=== PATIENT | female | born 1975 | race Caucasian/White ===

== ENCOUNTER → 2017-03-03 | Outpatient (CLI) | payer OTHER | LOC: FIMAGING 12:11 | PROVIDERS: ATTEND Obstetrics & Gynecology | DX: O09.512 Supervision of elderly primigravida, second trimester (principal); O09.812 Supervision of pregnancy resulting from assisted reproductive technology, second trimester; O99.282 Endocrine, nutritional and metabolic diseases complicating pregnancy, second trimester; O44.02 Complete placenta previa NOS or without hemorrhage, second trimester; Z3A.20 20 weeks gestation of pregnancy ==

== ENCOUNTER → 2017-04-22 | Outpatient (CLI) | payer OTHER | LOC: FIMAGING 08:47 | PROVIDERS: ATTEND Advanced Practice Midwife | DX: O09.512 Supervision of elderly primigravida, second trimester (principal); O09.812 Supervision of pregnancy resulting from assisted reproductive technology, second trimester; O44.02 Complete placenta previa NOS or without hemorrhage, second trimester; Z3A.37 37 weeks gestation of pregnancy ==

== ENCOUNTER → 2017-05-29 | Outpatient (CLI) | payer OTHER | LOC: FIMAGING 09:22 | PROVIDERS: ATTEND Obstetrics & Gynecology | DX: Z36.89 Encounter for other specified antenatal screening (principal); O09.523 Supervision of elderly multigravida, third trimester; Z3A.32 32 weeks gestation of pregnancy; O09.813 Supervision of pregnancy resulting from assisted reproductive technology, third trimester; O44.03 Complete placenta previa NOS or without hemorrhage, third trimester ==

== ENCOUNTER 2017-06-30 10:32 | Inpatient (IN) | payer OTHER ==
--- NOTE | 2017-06-25 22:51 | GHP ---
[f rep st] PREOP HISTORY AND PHYSICAL DATE OF ADMISSION: 06/30/2017 HISTORY UPON PRESENTATION: The patient is a 42-year-old, G1, P0, with an estimated due date of 07/19/2017, who presents for scheduled primary section for complete previa. The patient's has been complicated by a diagnosis of a complete previa at 20 weeks gestation. The patient has not had bleeding episodes during the and good movement. The patient has been advised by consultations with Maternal Medicine to proceed with delivery between 37 and 38 weeks. The patient is to present on June 30 for primary . The patient was counseled as to the risks and benefits on June 24. The consent forms were signed. The patient is advanced maternal age, and conceived with IVF. The patient has had twice weekly monitoring to ensure well-being. The patient also had an echo on the heart that was normal. The patient has had serial ultrasounds by maternal specialist to monitor growth of the fetus. Estimated weights have varied between 71st percentile and 82nd percentile. This was reassuring with the previa and the risk for growth. The previa has been hard for the patient as she desired very natural plan and even intended to transfer to a home . This was obviously revised when the patient learned of this complication. The patient had an elevated 1-hour Glucola that was followed up with a 3-hour GTT, and this was also abnormal. The patient has been followed with an clinical product specialist due to gestational diabetes. The patient had quite a bit of trouble getting that under control. The patient tried metformin but was unable to take long due to GI side affects. More recently, the patient has felt better blood sugar control being in the appropriate range majority of the time. PAST OBSTETRIC LABORATORIES: Maternal blood type B negative with negative antibody screen. RPR nonreactive. Rubella immune. Hepatitis B surface antigen negative. HIV negative. Cystic fibrosis, spinal muscular atrophy, fragile X were all negative with workup through her IVF specialist. TSH has been checked serially and has been within the normal range. Varicella is immune. Urinalysis showed positive blood in December 2016, but the culture was negative. Pap smear normal. Genetic testing on the embryo through IVF was felt to be normal chromosomes. MSAFP was negative. Rh testing was done again at 28 weeks, and RhoGAM was given on April 28. PAST MEDICAL HISTORY: Abnormal Pap smear of EARLENE-1 in 2011 and treated with cryotherapy. Unexplained infertility evaluated by [facility]. In September of 2016 , a myomectomy and a polypectomy were performed. Blank thyroid disorder diagnosed at the age of 20. PAST SURGICAL HISTORY: myomectomy and polypectomy, 2016 ALLERGIES: No known drug allergies. Several reactions to dietary and seasonal. CURRENT MEDICATIONS: [place] Thyroid 105 mg daily. vitamins daily. SOCIAL HISTORY: The patient is , lives with her . The patient is a nonsmoker. No alcohol or drug use. REVIEW OF SYSTEMS: Including 10-point system, the patient has pertinent positives and negatives as noted above. PHYSICAL EXAMINATION: GENERAL: At the time of preop, patient is a well- developed, well-nourished white female, in no physical discomfort. VITAL SIGNS: Patient is clinically afebrile. Blood pressure 100/58, weight 171 pounds. LUNGS : Clear to auscultation bilaterally. CARDIOVASCULAR: Regular rate and rhythm. ABDOMEN: Shows a gravid uterus at 38 cm. Normal heart tones in the 150s. PELVIC: Deferred. EXTREMITIES: Nontender and no edema. LABORATORY DATA: Urinalysis negative for protein and glucose. ASSESSMENT: Intrauterine at 37+ weeks gestation with complete previa. Also gestational diabetes in moderate control. Blank hypothyroidism in control on natural thyroid replacement. Advanced maternal age with history of in vitro fertilization with negative echo. PLAN: The patient will present on June 30 for midday surgery for a primary section. The patient wishes to have the 1 minute delayed cord clamping if the baby is doing well. After this, the patient would like to get CBR cord collection for storage. The patient reports that she gets hives with soaps and has sensitive skin and will try to do mild soap for the abdominal prep. Patient also reports she had a mild intolerance to a narcotic after the myomectomy, and she will try to check into what she was prescribed. /[id number]/MODL and [id number]/MODL MTDD
[2017-06-30] MEDS ORDERED: OXYTOCIN 20 UNIT in LR 1,000 ML IV PRN (11:18)
[2017-06-30] MEDS ORDERED: TERBUTALINE SULFATE 1 MG/ML VIAL IV PRN (11:18)
[2017-06-30] MEDS ORDERED: EPSOM SALT 454 GM TP PRN (11:18)
[2017-06-30] MEDS ORDERED: OLIVE OIL 118 ML BTL MISC PRN (11:18)
[2017-06-30] MEDS: LR 1,000 ML IV PRN ×2 (11:29→22:00)
[2017-06-30 11:32] LABS: % IMMATURE GRANULYOCYTES 0.6 % (0.0-1.1); ABSOLUTE IMMATURE GRANULOCYTES 0.05 10^3/uL (0.00-0.10); ADD DIFF? NO; ADD MORPH? NO; ADD SCAN? NO; ATYPICAL LYMPHOCYTE FLAG 0 (0-99); FRAGMENT RBC FLAG 0 (0-99); HEMOGLOBIN 13.7 g/dL (12.6-16.3); LEFT SHIFT FLG 0 (0-99); LIPEMIA HEMOLYSIS FLAG 90 (0-99); MEAN CELL HEMOGLOBIN 32.5 pg (27.9-34.1); MEAN CELL HEMOGLOBIN CONCENTR. 36.1 g/dL (32.4-36.7); MEAN PLATELET VOLUME 10.7 fL (8.7-11.7); PLATELET CLUMPS FLAG 0 (0-99); PLATELET COUNT 143 10^3/uL (150-400); RED BLOOD CELL COUNT 4.22 10^6/uL (4.18-5.33); RED CELL DISTRIBUTION WIDTH 13.4 % (11.5-15.2)
[2017-06-30] MEDS ORDERED: ceFAZolin 2 GM in NS 100 ML IV ONE (12:09)
[2017-06-30] MEDS ORDERED: KETOROLAC 30 MG/1 ML SDV ONE (12:24)
[2017-06-30] MEDS ORDERED: OLIVE OIL 118 ML BTL ONE (12:24)
[2017-06-30] MEDS ORDERED: OXYTOCIN 100 UNITS/10 ML VIAL ONE (12:24)
[2017-06-30] MEDS ORDERED: LIDOCAINE 1% 300 MG/30 ML SDV ONE (12:24)
[2017-06-30] MEDS ORDERED: AMMONIA AROMATIC 1 EACH AMP IH ONE (12:24)
[2017-06-30] MEDS ORDERED: ONDANSETRON 4 MG/2 ML VIAL ONE (12:24)
[2017-06-30] MEDS ORDERED: DEXAMETHASONE 4 MG/ML VIAL ONE (12:24)
[2017-06-30] MEDS ORDERED: TERBUTALINE SULFATE 1 MG/ML VIAL ONE (12:24)
[2017-06-30] MEDS ORDERED: OXYTOCIN 10 UNIT/ML VIAL ONE (12:25)
[2017-06-30] MEDS ORDERED: BUPIVACAINE/DEXTROSE 7.5MG/ML 2 ML SPINAL AMP SP ONE (12:25)
[2017-06-30] MEDS ORDERED: MISOPROSTOL 200 MCG TAB ONE (12:25)
[2017-06-30] MEDS ORDERED: METOCLOPRAMIDE 10 MG/2 ML VIAL IVP ONE (12:27)
[2017-06-30] MEDS ORDERED: CITRIC ACID/SODIUM CITRATE 30 ML UDCUP PO ONE (12:27)
[2017-06-30] MEDS ORDERED: FAMOTIDINE 20 MG/NACL 50 ML IV ONE (12:27)
--- NOTE | 2017-06-30 12:28 | PDANEPAE ---
ANE History of Present Illness c/s ANE Past Medical History - Cardiovascular History Hx Hypertension: No - Pulmonary History Hx COPD: No Hx Sleep Apnea: No Sleep Apnea Screening Result - Last Documented: Negative - Neurologic History Hx Cerebrovascular Accident: No - Endocrine History Hypothyroid: Yes - Renal History Hx Renal Disorders: No - Liver History Hx Hepatic Disorders: No ANE Review of Systems Review of Systems: - Exercise capacity METS (RN): 4 METS ANE Patient History - Allergies Allergies/Adverse Reactions: No Allergies [NKDA] Allergy (Verified 06/24/17 21:59) - Home Medications Home Medications: [place] Thyroid 105 mcg 06/30/17 [Last Taken 06/30/17 06:15] - NPO status NPO Since - Liquids (Date): 06/30/17 NPO Since - Liquids (Time): 06:15 NPO Since - Solids (Date): 06/30/17 NPO Since - Solids (Time): 04:15 - Anes Hx Anes Hx: no prior problems - Smoking Hx Smoking Status: Never smoked ANE Labs/Vital Signs - Labs Result Diagrams: 06/30/17 11:15 - Vital Signs Blood Pressure: 107/59 Respiratory Rate: 14 Height: 157.48 cm Weight: 75.75 kg ANE Physical Exam - Airway Mallampati Score: Class 2 Mouth exam: normal dental/mouth exam - Pulmonary Pulmonary: no respiratory distress - Cardiovascular Cardiovascular: regular rate and rhythym - ASA Status ASA Status: II ANE Anesthesia Plan Anesthesia Plan: spinal
[2017-06-30] MEDS ORDERED: ceFAZolin 2 GM/SWFI 2 GM/20 ML SYR IVP ONE ×2 (12:30)
[2017-06-30] MEDS ORDERED: ceFAZolin 2 GM/DEXTROSE 100 ML IV ONE (12:30)
[2017-06-30] MEDS ORDERED: morphINE PF 5 MG/10 ML INJ ONE (12:31)
[2017-06-30] MEDS ORDERED: PHENYLEPHRINE HCL 100 MCG/ML SYR ONE (12:32)
--- NOTE | 2017-06-30 12:33 | PDHPUP ---
History & Physical Update H&P update statement: This history and physical update is based on an assessment of the patient which was completed after admission or registration (within 24 hours), but prior to the surgery/procedure.
[2017-06-30] MEDS ORDERED: HYDROmorphONE/DILAUDID 1 MG/ML INJ IVP PRN (13:18)
[2017-06-30] MEDS ORDERED: MEPERIDINE 25 MG/ML SYR IVP PRN (13:18)
[2017-06-30] MEDS ORDERED: NALOXONE HCL 0.4 MG/ML INJ IVP PRN (13:18)
[2017-06-30] MEDS ORDERED: fentaNYL 100 MCG/2 ML INJ IVP PRN (13:18)
[2017-06-30] MEDS ORDERED: PHENYLEPHRINE HCL 100 MCG/ML SYR IVP PRN (13:18)
[2017-06-30] MEDS ORDERED: ONDANSETRON 4 MG/2 ML VIAL IVP PRN (13:18)
[2017-06-30] MEDS ORDERED: MIDAZOLAM 2 MG/2 ML VIAL ONE (13:33)
[2017-06-30] MEDS ORDERED: fentaNYL 100 MCG/2 ML INJ ONE (13:34)
[2017-06-30] MEDS ORDERED: PHENYLEPHRINE 10 MG/ML SDV ONE (13:56)
[2017-06-30] MEDS ORDERED: METHYLERGONOVINE MAL 0.2 MG/ML INJ ONE (13:56)
--- NOTE | 2017-06-30 14:34 | POSTANESTH ---
Post Anesthetic Evaluation Cardiovascular Status: Normal, Stable Respiratory Status: Normal, Stable Level of Consciousness/Mental Status: Can Participate in Eval Pain Control: Adequate, Prn Tx Ordered Nausea/Vomiting Control: Adequate, Prn Tx Ordered Complications Possibly Related to Anesthesia: None Noted
--- NOTE | 2017-06-30 14:48 | OBDEL ---
Info Type: Primary Presentation at Delivery: Vertex L&D Analgesia/Anesthesia Type: Spinal GBS+: No Intrapartum Medications: Generic Name Dose Route Start Last Admin Trade Name Freq PRN Reason Stop Dose Admin Lactated Ringer's 1,000 mls @ 0 mls/hr 06/30/17 11:18 06/30/17 11:29 Lr IV 07/01/17 11:17 1,000 mls PRN PRN Administration SEE PROTOCOL CONDITIONS Protocol Per Protocol Discontinued Medications Generic Name Dose Route Start Last Admin Trade Name Freq PRN Reason Stop Dose Admin Citric Acid/Sodium Citrate 30 ml 06/30/17 12:27 06/30/17 12:41 Bicitra PO 06/30/17 12:28 30 ml ONCE ONE Administration Cefazolin Sodium/Dextrose 100 mls @ 200 mls/hr 06/30/17 12:30 06/30/17 12:36 Ancef 2 Gm (Premix) IV 06/30/17 12:59 100 mls ONCE ONE Administration Famotidine/Sodium Chloride 50 mls @ 200 mls/hr 06/30/17 12:27 06/30/17 12:41 Pepcid 20 Mg (Premix) IV 06/30/17 12:41 50 mls ONCE ONE Administration Metoclopramide HCl 10 mg 06/30/17 12:27 06/30/17 12:41 Reglan Injection IVP 06/30/17 12:28 10 mg ONCE ONE Administration - Infant Care Provider Drilling Inspector/TRUCK STRIKER: Kecia Richards Indications for Delivery: Placenta Previa (complete, no bleeding) Operative Report - Delivery Pre-op Diagnoses: IUP at 37+ wks, complete placenta previa, gestational diabetes Post-op Diagnoses: same with placenta accreta History of Prior Section: No Number of Prior Sections: 0 Nulliparous Prior to Delivery: Yes Indications for Current Section: Placenta Previa Procedure: Scheduled, Low Transverse Surgeon: Deb Mendoza Claim Review Medical Director: Francine Contreras Anesthesiologist: El Marquez Complications: Other (Specify) (poor placental separation with concern for placental tissue into posterior wall, unable to fully remove tissue without pulling into uterine muscle.) Findings: normal uterus, tubes, ovaries. clear fluid upon amniotomy. gentle vacuum to elevate head to hysterotomy due to ROT position. placenta without normal cleavage plane - no separation - removed in pieces. after uterus externalized, the placental tissue still evident on post wall and trying to pull free of muscle resulted in tearing into muscle belly and increasing bleeding. Hysterotomy closed with double layer without trouble. inspected with Dr Darling. Cytotec 800 mcg given pr. Methergine 0.2 mg given IM in OR. Pt remained stable with low B/P but not tachycardic in OR. Delayed cord clamping for one minute due to early term status. Following this cord blood collection done. Baby vigorous at del time Specimen(s)/Path: Placenta IV Fluid (ml): 2,400 EBL: 1400 Data VICTOR M: 07/19/17 Gestational Age: 37 week(s) and 2 day(s) [place] Delivery Date: 06/30/17 Delivery Time: 13:26 Sex of Infant: Male Score (1 Min): 8 Score (5 Min): 9 ICD10 Worksheet Patient Problems: Problems Problem Status Onset Placenta accreta affecting delivery Acute S/P primary low transverse Acute Complete placenta previa nos or without hemorrhage, third trimester Acute
[2017-06-30] MEDS ORDERED: HYDROCODONE/APAP 5/325 TAB PO PRN (14:59)
[2017-06-30] MEDS ORDERED: POLYETHYLENE GLYCOL 3350 17 GM PKT PO PRN (15:04)
[2017-06-30] MEDS ORDERED: BISACODYL 10 MG SUPP PR PRN (15:04)
[2017-06-30] MEDS ORDERED: LACTULOSE 20 GM/30 ML UDCUP PO PRN (15:04)
[2017-06-30] MEDS ORDERED: MAGNESIUM HYDROXIDE 30 ML UDCUP PO PRN (15:04)
[2017-06-30] MEDS: KETOROLAC 30 MG/1 ML SDV IVP SCH (17:59)
[2017-06-30] MEDS: MISOPROSTOL 200 MCG TAB PR SCH ×2 (21:29→21:52)
[2017-06-30] MEDS: SENNOSIDES/DOCUSATE SODIUM TAB PO SCH (21:53)
[2017-07-01] MEDS: KETOROLAC 30 MG/1 ML SDV IVP SCH ×3 (05:30→15:51)
[2017-07-01] MEDS: SENNOSIDES/DOCUSATE SODIUM TAB PO SCH ×2 (09:09→23:03)
[2017-07-01] MEDS ORDERED: THYROID 60 MG TAB PO SCH (10:00)
[2017-07-01] MEDS: IRON POLYSAC/IRON HEME 28 MG TAB PO SCH ×2 (10:42→23:03)
[2017-07-01] MEDS: ONDANSETRON DISINTEGRATING 4 MG TAB PO PRN ×2 (10:43→16:37)
[2017-07-01] MEDS: OXYCODONE/APAP 5/325 TAB PO PRN ×3 (11:18→23:28)
[2017-07-01 17:16] LABS: HEMATOCRIT 24.5 % (38.0-47.0); HEMOGLOBIN 8.8 g/dL (12.6-16.3)
[2017-07-01] MEDS: THYROID PORK 90 MG PO SCH (17:49)
[2017-07-01] MEDS: Thyroid,Pork [Armour Thyroid] 15 MG PO SCH (17:49)
[2017-07-01] MEDS: IBUPROFEN 600 MG TAB PO PRN (20:59)
--- NOTE | 2017-07-01 21:37 | OBPP ---
Progress Note Assessment/Plan: Assessment: POD 1 s/p primary C/S for complete previa concern for accreta at surgery anemia Plan: routine care, recheck hct at 1500 07/01/17 21:28 Subjective/ Course: 07/01/17 21:30 PT SEEN AT 9:30 AM, NOTE RECORDED LATER IN DAY. Pt doing well but complaining of pain and worry about nausea from narcotics. pt very nauseated yesterday - possibly from duramorph. Tried [place] - had nausea. disc trying percocet today and recommend Toradol regularly. rec trying to get up and amb and have garcia removed. Has tried BF but difficulty with latching. Is pumping. Anxious about placental issue and drop of hct - reassured by clinically stable uterine checks. Objective: 07/01/17 17:05 Patient ABO/Rh B NEGATIVE 06/30/17 11:15 Temp Pulse Resp BP Pulse Ox 37.1 C 87 16 101/55 L 92 07/01/17 11:26 07/01/17 11:26 07/01/17 11:26 07/01/17 11:26 07/01/17 04:00 Uterine Position/Fundal Height: Umbilicus -1 Uterine Tone: Firm Physical Exam - Physical Exam Abdomen: non-tender (approp post op tenderness), soft, other (bandage CDI, FF at umb -1) Extremities: non-tender, pedal edema (mild) Skin: normal color, warm/dry Neuro/Psych: alert, normal mood/affect
[2017-07-02] MEDS: IBUPROFEN 600 MG TAB PO PRN ×4 (02:27→20:25)
[2017-07-02] MEDS: OXYCODONE/APAP 5/325 TAB PO PRN ×4 (02:27→20:21)
[2017-07-02] MEDS ORDERED: ceFAZolin 2 GM/DEXTROSE 100 ML IV ONE (07:00)
[2017-07-02] MEDS ORDERED: THYROID 60 MG TAB PO SCH (07:00)
[2017-07-02] MEDS ORDERED: LR 1,000 ML IV SCH (07:00)
[2017-07-02] MEDS ORDERED: LR 500 ML IV ONE (07:00)
[2017-07-02] MEDS ORDERED: CITRIC ACID/SODIUM CITRATE 30 ML UDCUP PO ONE (07:00)
[2017-07-02] MEDS: THYROID PORK 90 MG PO SCH (08:06)
[2017-07-02] MEDS: Thyroid,Pork [Armour Thyroid] 15 MG PO SCH (08:06)
[2017-07-02] MEDS: SENNOSIDES/DOCUSATE SODIUM TAB PO SCH ×2 (10:11→22:34)
[2017-07-02] MEDS: IRON POLYSAC/IRON HEME 28 MG TAB PO SCH ×2 (10:11→22:35)
--- NOTE | 2017-07-02 19:39 | OBPP ---
Progress Note Assessment/Plan: Assessment: pod# 2 s/p PLTCS for placenta previa and suspected placenta accreda with pp hemorrhage breast feeding anemia -stable Plan: routine post care iron increase activity 07/02/17 19:36 Subjective/ Course: 07/01/17 21:30 PT SEEN AT 9:30 AM, NOTE RECORDED LATER IN DAY. Pt doing well but complaining of pain and worry about nausea from narcotics. pt very nauseated yesterday - possibly from duramorph. Tried [place] - had nausea. disc trying percocet today and recommend Toradol regularly. rec trying to get up and amb and have garcia removed. Has tried BF but difficulty with latching. Is pumping. Anxious about placental issue and drop of hct - reassured by clinically stable uterine checks. 07/02/17 19:37 patient is doing better today. pain is well controlled. tolerating diet. voiding without difficulty. lightheadeness has resolved. working on breast feeding. denies headache and changes in vision. Objective: 07/01/17 17:05 Patient ABO/Rh B NEGATIVE 06/30/17 11:15 Temp Pulse Resp BP Pulse Ox 36.9 C 72 17 85/52 L 93 07/02/17 08:00 07/02/17 08:00 07/02/17 08:00 07/02/17 08:00 07/02/17 08:00 Uterine Position/Fundal Height: Umbilicus -2 Uterine Tone: Firm Physical Exam - Physical Exam Neck: non-tender, full range of motion, supple Respiratory: chest non-tender, lungs clear, normal breath sounds Cardiac/Chest: normal peripheral pulses, regular rate, rhythm Abdomen: normal bowel sounds, non-tender Extremities: normal range of motion, non-tender, normal inspection, normal capillary refill Skin: normal color, warm/dry Neuro/Psych: no motor/sensory deficits, alert, normal mood/affect, oriented x 3
[2017-07-03] MEDS: OXYCODONE/APAP 5/325 TAB PO PRN ×4 (01:08→20:08)
[2017-07-03] MEDS: IBUPROFEN 600 MG TAB PO PRN ×3 (02:59→18:38)
[2017-07-03] MEDS: Thyroid,Pork [Armour Thyroid] 15 MG PO SCH (06:05)
[2017-07-03] MEDS: THYROID PORK 90 MG PO SCH (06:05)
--- NOTE | 2017-07-03 11:10 | OBPP ---
Progress Note Assessment/Plan: Assessment: 42yo s/p primary c/s POD#3 anemia 2/2 PPH Plan: routine post op care cont cont PO iron plan d/c home tomorrow 07/03/17 11:10 Subjective/ Course: 07/01/17 21:30 PT SEEN AT 9:30 AM, NOTE RECORDED LATER IN DAY. Pt doing well but complaining of pain and worry about nausea from narcotics. pt very nauseated yesterday - possibly from duramorph. Tried [place] - had nausea. disc trying percocet today and recommend Toradol regularly. rec trying to get up and amb and have garcia removed. Has tried BF but difficulty with latching. Is pumping. Anxious about placental issue and drop of hct - reassured by clinically stable uterine checks. 07/02/17 19:37 patient is doing better today. pain is well controlled. tolerating diet. voiding without difficulty. lightheadeness has resolved. working on breast feeding. denies headache and changes in vision. 07/03/17 11:08 Pt doing well, she states she has had couple episodes of dizziness but overall feeling better. She denies any heavy bleeding or severe pain. She is using ibuprofen and norco for pain relief. She is , using shield. She is ambulating and voiding without difficulty. Objective: 07/01/17 17:05 Patient ABO/Rh B NEGATIVE 06/30/17 11:15 Temp Pulse Resp BP Pulse Ox 36.6 C 69 14 95/58 L 93 07/03/17 08:00 07/03/17 08:00 07/03/17 08:00 07/03/17 08:00 07/03/17 08:00 Uterine Position/Fundal Height: Umbilicus -1, Midline Uterine Tone: Firm Physical Exam - Physical Exam Neck: supple Respiratory: lungs clear, normal breath sounds Cardiac/Chest: regular rate, rhythm Abdomen: non-tender, soft, incision (C, D, I; steristrips present) Extremities: pedal edema Skin: normal color, warm/dry Neuro/Psych: no motor/sensory deficits, alert, normal mood/affect, oriented x 3
[2017-07-03] MEDS: SENNOSIDES/DOCUSATE SODIUM TAB PO SCH ×2 (11:27→20:08)
[2017-07-03] MEDS: IRON POLYSAC/IRON HEME 28 MG TAB PO SCH ×2 (13:50→20:08)
[2017-07-03 21:17] VITALS: RESP 16; O2SAT 95
[2017-07-04] MEDS: OXYCODONE/APAP 5/325 TAB PO PRN ×3 (00:25→13:49)
[2017-07-04] MEDS: IBUPROFEN 600 MG TAB PO PRN ×2 (00:25→09:05)
[2017-07-04] MEDS: IRON POLYSAC/IRON HEME 28 MG TAB PO SCH (09:05)
[2017-07-04] MEDS: SENNOSIDES/DOCUSATE SODIUM TAB PO SCH (09:06)
--- NOTE | 2017-07-04 09:11 | OBPP ---
Progress Note Assessment/Plan: Assessment: with shield. SS. donor milk. Nipples intact pain well managed voiding without difficulty ff@u scant rubra lochia incision well approximated with ss in place Plan:po day 4 discharge instructions discussed. rest, depression, pelvic rest, pain management, bleeding pattern, ss infection, 2 week4 week and 6 week pp visit no driving x 2 weeks, exercise walking with slow return to exercise routine at 6 weeks verbalized understanding of discharge explanation ok with poc 07/04/17 09:11 Subjective/ Course: 07/01/17 21:30 PT SEEN AT 9:30 AM, NOTE RECORDED LATER IN DAY. Pt doing well but complaining of pain and worry about nausea from narcotics. pt very nauseated yesterday - possibly from duramorph. Tried [place] - had nausea. disc trying percocet today and recommend Toradol regularly. rec trying to get up and amb and have garcia removed. Has tried BF but difficulty with latching. Is pumping. Anxious about placental issue and drop of hct - reassured by clinically stable uterine checks. 07/02/17 19:37 patient is doing better today. pain is well controlled. tolerating diet. voiding without difficulty. lightheadeness has resolved. working on breast feeding. denies headache and changes in vision. 07/03/17 11:08 Pt doing well, she states she has had couple episodes of dizziness but overall feeling better. She denies any heavy bleeding or severe pain. She is using ibuprofen and norco for pain relief. She is , using shield. She is ambulating and voiding without difficulty. 07/04/17 09:07 Doing well. Denies difficulties. Utilizing pain medication to assist with pain relief. Voiding without difficulty. Passing gas. Objective: 07/01/17 17:05 Patient ABO/Rh B NEGATIVE 06/30/17 11:15 Temp Pulse Resp BP Pulse Ox 37.1 C 78 16 107/66 95 07/03/17 19:40 07/03/17 19:40 07/03/17 19:40 07/03/17 19:40 07/03/17 19:40 Uterine Position/Fundal Height: At Umbilicus Uterine Tone: Firm Physical Exam - Physical Exam General Appearance: WD/WN, alert, no apparent distress Respiratory: chest non-tender, lungs clear, normal breath sounds Cardiac/Chest: regular rate, rhythm Abdomen: normal bowel sounds Extremities: normal range of motion, Laina's sign (negative bilaterlly) DTR- Lower Extremities: Knee (R): 1+, Knee (L): 1+ (no clonus) Skin: normal color, warm/dry Neuro/Psych: no motor/sensory deficits, alert, normal mood/affect, oriented x 3
[2017-07-04] MEDS: Thyroid,Pork [Armour Thyroid] 15 MG PO SCH (10:56)
[2017-07-04] MEDS: THYROID PORK 90 MG PO SCH (10:57)
[2017-07-04 11:34] VITALS: BP 104/68; PULSE 81; TEMP 97.9
== END 2017-07-04 15:00 | disposition home or self-care (01) | DRG 765 ==
LOC: FLD 10:32 → FOB 07-01 21:24
PROVIDERS: ADMIT Obstetrics & Gynecology; ATTEND Obstetrics & Gynecology
PROC: 3E0P7GC Introduction of Other Therapeutic Substance into Female Reproductive, Via Natural or Artificial Opening (ICD-10-PCS; principal; 2017-06-30)
PROC: 10D00Z1 Extraction of Products of Conception, Low, Open Approach (ICD-10-PCS; principal; 2017-06-30)
DX: O44.03 Complete placenta previa NOS or without hemorrhage, third trimester (principal); O24.429 Gestational diabetes mellitus in childbirth, unspecified control; O43.213 Placenta accreta, third trimester; O72.0 Third-stage hemorrhage; O90.81 Anemia of the puerperium; O32.2XX0 Maternal care for transverse and oblique lie, not applicable or unspecified; O99.284 Endocrine, nutritional and metabolic diseases complicating childbirth; E06.3 Autoimmune thyroiditis; Z3A.37 37 weeks gestation of pregnancy; Z37.0 Single live birth
CPT/HCPCS: J0690; J1100; J1885; J2210; J2250; J2274; J2370; J2405; J2590; J2765; J3010; J3105

== ENCOUNTER 2017-07-30 15:00 | Observation (INO) | payer OTHER ==
[2017-07-30] MEDS ORDERED: HYDROCODONE/APAP 5/325 TAB PO PRN (15:32)
[2017-07-30] MEDS ORDERED: ONDANSETRON 4 MG/2 ML VIAL IVP PRN (15:32)
[2017-07-30] MEDS ORDERED: ONDANSETRON DISINTEGRATING 4 MG TAB PO PRN (15:32)
[2017-07-30] MEDS ORDERED: ACETAMINOPHEN 325 MG TAB PO PRN (15:32)
[2017-07-30] MEDS: IBUPROFEN 200 MG TAB PO PRN (16:03)
--- NOTE | 2017-07-30 16:10 | GHP ---
[f rep st] HISTORY AND PHYSICAL DATE OF ADMISSION: 07/30/2017 ADMISSION DIAGNOSIS: Presumptive endometritis. INDICATIONS: The patient is a 42-year-old 1, para 1-0-0-1 who is approximately 3 weeks from a primary low transverse section for placenta previa. That intraoperative period was complicated by possible placenta accreta. The patient overall had an uncomplicated course. She had been doing well until Friday when she started having increased discomfort in her abdomen. She states it was excruciating. Then last night she started to have alternating cold and hot sweats. She does not have a good thermometer at home, so she did not see if she was febrile. Today she has become increasingly achy and just not comfortable and not feeling well at all. She feels weak. She did have 1 episode of diarrhea this morning, but has not had any since then. The patient states she is pumping due to low supply and has not noticed any signs or symptoms of mastitis. Nobody else is sick at home. The patient states again just has general malaise and body aches. Management options were reviewed with the patient. The decision was made to send the patient over to for a flu swab and management of presumptive endometritis. MEDICAL HISTORY: Significant for abnormal Pap smear in 2011, treated with cryosurgery, unexplained infertility, fibroid uterus, Blank's thyroiditis, and a history of gestational diabetes. SURGICAL HISTORY: Myomectomy, polypectomy in 2019, section in June of 2017. ALLERGIES: No known drug allergies. She has several dietary and seasonal allergies. MEDICATIONS: [place] Thyroid and vitamins. SOCIAL HISTORY: Patient is . She lives with her and their child. She denies tobacco, alcohol, or drug use. FAMILY MEDICAL HISTORY: Noncontributory. OBSTETRICAL AND GYNECOLOGICAL HISTORY: Menarche age 14. Periods every 24-28 days, lasting 5 days. She is a 1, para 1-0-0-1. The most recent was complicated by placenta previa. She conceived that by IVF and had close surveillance due to AMA and a placenta previa. Delivery was by section for the placenta previa and had a possible placenta accreta at the time of delivery. Patient does have a history of abnormal Pap smears for which she was treated with cryosurgery. Repeat Paps have been negative. She denies any history of any other sexually transmitted diseases. REVIEW OF SYSTEMS: A 10-point review of systems is negative with the exception of the above-mentioned pertinent positives. PHYSICAL EXAMINATION: VITAL SIGNS: Stable. She was afebrile. Blood pressure was 94/56. GENERAL APPEARANCE: Alert and oriented x3. However, she does appear somewhat toxic in appearance. PSYCH: She has appropriate affect. NECK: Mobile and supple. HEART: Rate is irregular regular. LUNGS: Are clear to auscultation bilaterally. ABDOMEN: Soft nondistended, but there is some lower abdominal tenderness. EXTREMITIES: Reveal no calf tenderness or edema. MUSCULOSKELETAL: Grossly intact. NEUROMUSCULAR: Grossly intact. PELVIC: She has a mobile enlarged uterus which was tender. BREASTS: Bilaterally unremarkable. No signs or symptoms of mastitis. Patient had a pelvic ultrasound today in our office which showed a uterus measuring 9 cm with an endometrium of 0.52 cm. There appeared to be some complex fluid within the endometrial canal. There is an increased area of complex fluid in the areas of the cervix. However, the endometrial canal is not clearly defined. There is a small echogenic area near the fundus which is 2 mm. No flow within the endometrial canal. There is an echogenic rim visualized around the internal cervical os and sutures in the lower uterine segment consistent with her most recent section are noted. Ovaries are unremarkable. ASSESSMENT AND PLAN: A 42-year-old 1, para 1-0-0-1 who is 3 weeks status post a repeat section with general malaise. She is sent to Labor and Delivery and will have a flu swab and labs and will be treated for presumptive endometritis. A urine culture and a general vaginal swab was sent on the patient from the office. /[id number]/MODL MTDD
[2017-07-30 16:37] LABS: PLATELET COUNT 192 10^3/uL (150-400)
[2017-07-30] MEDS: AMPICILLIN/SULBACTAM 3 GM in NS 100 ML IV SCH ×2 (16:47→23:56)
[2017-07-30] MEDS: LR 1,000 ML IV SCH ×2 (17:00→23:56)
--- NOTE | 2017-07-30 21:09 | SOAPPROG ---
SOAP Progress Note Assessment/Plan: Assessment: 42 y/o 3 weeks s/p LTCS secondary to placenta previa/acreta admitted with flu- like symptoms and abdominal pain. Plan: Pt is negative for flu, urine analysis is negative and WBC is 4.9. On exam her uterus is non-tender but she has mild tenderness over her epigastrium and RUQ. I will add amylase and lipase to her CMP tonight and will presumptively continue Unasyn and IVH. I suspect viral etiology and if she remains afebrile and non-toxic appearing, will d/c home tomorrow. 07/30/17 21:11 Subjective: Pt is doing better tonight. She reports her leg pain and achiness has resolved with rest and Ibuprofen. She feels generally better with hydration and denies nausea or further episodes of diarrhea. She denies fever or chills. She continues to have abdominal pain which has evolved to her upper abdomen now and her lower abdomen over her uterus feels "numb." She denies breast pain or problems and is pumping but having little milk production. Objective: Vital Signs Temp Pulse Resp BP Pulse Ox 37.9 C 81 18 101/64 90 L 07/30/17 19:55 07/30/17 19:55 07/30/17 19:55 07/30/17 19:55 07/30/17 19:55 Laboratory Results 07/30/17 16:15 07/30/17 15:36 07/29/17 07/30/17 07/31/17 05:59 05:59 05:59 Intake Total 250 Balance 250 - Pending Discharge Pending Discharge Within 24 Hours: Yes Pending Discharge Date: 07/31/17 Pending Discharge Time: 11:00 Physical Exam - Physical Exam General Appearance: WD/WN, alert, no apparent distress Neck: non-tender, full range of motion, supple Respiratory: chest non-tender, lungs clear, normal breath sounds Cardiac/Chest: regular rate, rhythm Abdomen: normal bowel sounds, non-tender, soft, other (incision) Extremities: swelling (no), Laina's sign (neg) ICD10 Worksheet Patient Problems: Problems Problem Status Onset Abdominal pain Acute - ICD10 Problem Qualifiers (1) Abdominal pain
[2017-07-31] MEDS: IBUPROFEN 200 MG TAB PO PRN ×2 (00:01→08:26)
[2017-07-31] MEDS: AMPICILLIN/SULBACTAM 3 GM in NS 100 ML IV SCH (05:57)
--- NOTE | 2017-07-31 08:14 | SOAPPROG ---
SOAP Progress Note Assessment/Plan: Assessment: 42 y/o 3 weeks s/p LTCS secondary to placenta previa/acreta admitted with flu- like symptoms, abdominal pain and diarrhea HD #2 Plan: Pt is improving, afebrile No leukocytosis, Influenza A neg, urine neg Discontinue abx, s/p Unasyn Plan for discharge, likely gastroenteritis RTO in 1 and 2 weeks 07/31/17 08:10 Subjective: Pt seen and examined. Feeling better. Still having some upper abd discomfort, relief with Motrin. Loose stool x 1 this am. Denies any f/c/n/v. Denies any VB or abn discharge. Able to ambulate, voiding without difficulty. Objective: Vital Signs Temp Pulse Resp BP Pulse Ox 36.3 C 54 L 18 85/53 L 95 07/31/17 05:45 07/31/17 05:45 07/31/17 05:45 07/31/17 05:45 07/31/17 05:45 Laboratory Results 07/30/17 16:15 07/30/17 15:36 07/30/17 07/31/17 08/01/17 05:59 05:59 05:59 Intake Total 1825 Balance 1825 Physical Exam - Physical Exam General Appearance: alert, no apparent distress Abdomen: non-tender, soft Pelvic Exam: deferred Extremities: non-tender, normal inspection Neuro/Psych: alert, normal mood/affect, oriented x 3 ICD10 Worksheet Patient Problems: Problems Problem Status Onset Abdominal pain Acute
[2017-07-31 09:24] VITALS: BP 95/58; PULSE 64; RESP 16; TEMP 98; O2SAT 96
== END 2017-07-31 10:00 | disposition home or self-care (01) ==
LOC: FOB 15:00 → INTOOBSV 15:00
PROVIDERS: ADMIT Obstetrics & Gynecology; ATTEND Obstetrics & Gynecology
DX: R10.9 Unspecified abdominal pain (principal); R19.7 Diarrhea, unspecified
CPT/HCPCS: G0378 ×2; J0295